=== PATIENT | male | born 1975 | race Caucasian/White ===

== ENCOUNTER 2019-09-14 23:52 | Emergency (ER) | payer SELFPAY ==
[2019-09-14 23:53] VITALS: BP 168/127; PULSE 93; RESP 18; TEMP 36.5; O2SAT 98; BMI 50.1
[2019-09-15 00:02] VITALS: BP 112/72; PULSE 87; RESP 18; O2SAT 100
--- NOTE | 2019-09-15 00:03 | EKG12_ITS ---
Test Reason : SOB Blood Pressure : / mmHG Vent. Rate : 087 BPM Atrial Rate : 087 BPM P-R Int : 142 ms QRS Dur : 076 ms QT Int : 354 ms P-R-T Axes : 025 028 019 degrees QTc Int : 425 ms Sinus rhythm with occasional Premature ventricular complexes Low voltage QRS Borderline ECG Confirmed by ORLANDO WEATHERS, CHRISTIN ([id number]), managing editor XIMENA MOTT ([id number]) on 09/17/2019 1:38:01 PM Referred By: TRINITY Confirmed By:CHRISTIN PERRY MD
[2019-09-15 00:04] VITALS: O2SAT 98
--- NOTE | 2019-09-15 00:04 | ED.DCSUM_ITS ---
History of Present Illness Chief Complaint: Shortness of Breath Informant: Patient Onset: Days Context: Gradual Onset Timing: Continuous Current Severity: Moderate Maximum Severity: Moderate Narrative: The patient is a 44-year-old male with history of prior smoking, obesity, and hypertension that presents to the emergency department cough and shortness of breath. Patient states his symptoms began about 3 days ago. He states he has had chills and myalgias. He had outpatient testing done for COVID-19 yesterday through the [facility] system. This was actually negative. He states tonight, he felt like his dyspnea was worsening. Has been using his 's nebulizer with some improvement. He denies chest pain. He denies orthopnea. He has no history of immunosuppression. He is otherwise been in his normal state of health. Prior similar symptoms: No Recent Illness/Hospitalization: No Past Medical History - Allergies and Home Meds Allergies/Adverse Reactions: Allergies codeine Adverse Reaction (Verified 08/10/16 18:31) Rash Penicillins Adverse Reaction (Verified 08/10/16 18:31) Other Primary Care Physician: Richard Clements MD [Primary Care Provider] - Prior records reviewed: Yes Past Medical History: - - Hypertension, sleep apnea Surgical History: appendectomy, cholecystectomy, - - hernia Smoking Status: Current every day smoker - Family History Maternal Family History: Reports: Heart Disease Sibling Family History: Reports: Diabetes Review of Systems General: Denies: Chills, Fever, Sweats Eyes: Denies: Visual changes - bilaterally, Diplopia ENT: Denies: Rhinorrhea, Sore throat Cardiovascular: Denies: Chest pain, Palpitations Respiratory: Reports: Dyspnea, Cough. Denies: Dyspnea on exertion Gastrointestinal: Reports: Nausea, Diarrhea. Denies: Abdominal pain, Vomiting, Melena, Hematochezia Genitourinary: Denies: Dysuria, Hematuria, Frequency Musculoskeletal: Denies: Back pain, Extremity Pain Skin: Denies: Rash, Wounds Neurological: Denies: Headache, Weakness, Numbness Physical Exam Vital Signs/Narrative: Vital Signs Temp Pulse Resp BP Pulse Ox 09/15/19 00:02 87 18 112/72 100 09/14/19 23:53 97.7 F L 93 18 168/127 H 98 Inital Vital Signs reviewed: Yes General: Well nourished, Well developed, No Acute Distress Head: Normocephalic, Atraumatic Eyes: Perrl, EOMI ENT: Moist mucous membranes, No rhinorrhea Neck: Supple, Nontender Cardiovascular: Regular rate, Regular rhythm, No murmurs Respiratory: No distress, Chest nontender, Decreased Air Movement Abdomen: Soft, Nontender, Nondistended, Normal bowel sounds Back: Nontender, Normal Inspection Extremities: Nontender, No edema Skin: Normal color, No rash Neurological: Alert, Oriented x3, Cranial nerves II-XII grossly intact, Normal Strength, Normal Sensation Psychological: Normal affect, Normal Mood Diagnostic/Tx/Re-eval Chest X-Ray - ED: 1 View, Normal, Heart, Lungs, Mediastinum Clinical Impression(s) from Imaging Studies Chest X-Ray 09/15/19 00:30 IMPRESSION: No acute cardiopulmonary disease identified. Electronically Signed: Louis Miranda, at 1:04 EDT Tel , Service support , Abnormal Lab Results 09/15/19 09/15/19 00:10 00:10 WBC 14.1 H RBC 5.18 Hgb 15.7 Hct 46.8 MCV 90.3 MCH 30.3 MCHC 33.5 RDW Std Deviation 42.5 RDW Coeff of Nancy 12.9 Plt Count 238 MPV 11.0 Immature Gran % (Auto) 0.400 Neut % (Auto) 53.6 Lymph % (Auto) 32.3 [place] % (Auto) 9.8 Eos % (Auto) 3.3 Baso % (Auto) 0.6 Absolute Neuts (auto) 7.6 Absolute Lymphs (auto) 4.56 H Nucleated RBC % 0 Sodium 140 Potassium 4.2 Chloride 112 H Carbon Dioxide 23.0 Anion Gap 5 BUN 11 Creatinine 0.92 Estim Creat Clear Calc 100.33 Est GFR (MDRD) Af Amer 114 Est GFR (MDRD) Non-Af 94 BUN/Creatinine Ratio 11.9 Glucose 119 H Calcium 9.0 Total Bilirubin 0.30 AST 18 ALT 61 Alkaline Phosphatase 73 Troponin I < 0.015 Total Protein 7.0 Albumin 3.5 Globulin 3.5 Albumin/Globulin Ratio 1.0 - Rhythm Strip Rhythm Strip: Sinus Rhythm Rate: 80 Ectopy: PVC(s) - EKG Initial EKG Interpretation: Sinus Rhythm, No Acute Injury Pattern Prior: Unchanged - Medical Decision Making Patient presents with cough, dyspnea, and generalized malaise. He does have a history of smoking and sleep apnea. I did confirm his negative COVID-19 test. Screening labs were obtained these are relatively unremarkable. He does have a mild leukocytosis. Chest x-ray does not show focal infiltrative process, pneumothorax, or volume overload. EKG was sinus rhythm without acute ischemia. There was a few PVCs. Screening labs including cardiac enzymes are also unremarkable. The patient has remained 100% on room air. He has no hypoxia or tachypnea. I do feel this is more bronchitis type illness especially given his otherwise unremarkable work-up and negative cover test. I do feel that he is safe for outpatient therapy. He will be treated with prednisone and d oxycycline. Impression 1. Acute bronchitis ED Disposition - Plan for ED Patient: Instructions: ED Upper Resp Infec Abx Tx Prescriptions: Prednisone [Deltasone] 40 mg PO DAILY #10 tab Prescription Printed Doxycycline 100 mg PO BID #20 cap Prescription Printed Referrals: Richard Clements MD [Primary Care Provider] -
[2019-09-15 00:30] LABS: Absolute Lymphocyte Count 4.56 X10^3/uL (0.83-4.51); Absolute Neutrophil Count 7.6 X10^3/uL (2.0-7.7); Basophil# 0.08 X10^3/uL; Basophil% 0.6 % (0-1); Eosinophil# 0.47 X10^3/uL; Eosinophils% 3.3 % (0-5); Hematocrit 46.8 % (40-54); Hemoglobin 15.7 g/dL (13.0-16.5); Lymphocyte # 4.56 X10^3/ul (4.0); Lymphocyte % 32.3 % (19-41); Mean Corp Hgb Conc 33.5 g/dL (32-36); Mean Corpuscular Hgb 30.3 pg (27.0-32.0); Mean Corpuscular Volume 90.3 fL (80-94); Monocyte# 1.39 X10^3/uL; Monocyte% 9.8 % (0-10); NRBC Flagged by Analyzer 0 % (0-5); Neutrophil # 7.57 X10^3/uL (2.7-7.7); Neutrophil % 53.6 % (47-70); Platelet Count 238 K/mm3 (150-450); RBC Distribution Width CV 12.9 % (11.6-14.6); RBC Distribution Width SD 42.5 fl (35.1-43.9); Red Blood Count 5.18 M/mm3 (4.6-6.2); White Blood Count 14.1 K/mm3 (4.4-11.0)
--- NOTE | 2019-09-15 00:30 | RAD_ITS ---
STUDY: X-RAY CHEST REASON FOR EXAM: Male, 44 years old. COUGH, SOB, MARADIAGA, BODY ACHES TECHNIQUE: Single frontal view of the chest. COMPARISON: None. FINDINGS: The lungs are clear and expanded. There is no demonstrated pleural abnormality. Normal size heart. Aortic calcifications. Normal visualized thoracic spine. Normal visualized ribs, clavicles, and shoulders. There is no demonstrated abnormality of the visualized soft tissue structures of the upper abdomen. RAD/Chest 1 View (Portable) IMPRESSION: No acute cardiopulmonary disease identified. Electronically Signed: Louis Miranda, at 1:04 EDT Tel , Service support ,
[2019-09-15 00:48] LABS: AST(SGOT) 18 U/L (15-37); Alanine Aminotransfer ALT/SGPT 61 U/L (16-61); Albumin, Serum 3.5 g/dL (3.2-5.0); Alkaline Phosphatase 73 U/L (45-117); Anion Gap 5 (5-15); BUN 11 mg/dL (7-18); BUN/Creat Ratio 11.9 RATIO (10-20); Chloride 112 mmol/L (98-107); Creatinine, Serum 0.92 mg/dL (0.70-1.30); EST Glomerular Filtration Rate 94 mL/min (>60); Est Glom Filt Rate - Afr Amer 114 mL/min (>60); Estimated Creatinine Clearance 100.33 ml/min; Globulin 3.5 g/dL (2.2-4.2); Glucose 119 mg/dL (74-106); Potassium 4.2 mmol/L (3.5-5.1); Sodium Level 140 mmol/L (136-145)
[2019-09-15 01:19] VITALS: BP 126/75; PULSE 80; RESP 14; O2SAT 99
[2019-09-15] MEDS: predniSONE 20 MG Tablet 60 MG PO (01:29)
[2019-09-15] MEDS: Doxycycline 100 MG CAPSULE PO (01:29)
[2019-09-15 03:21] LABS: BNP,B-Type NATRIURETIC PEPTIDE 7.3 pg/mL (0-100)
== END 2019-09-15 01:15 | disposition home or self-care (01) ==
LOC: ED 09-15 01:55
PROVIDERS: Emergency Provider Emergency Medicine; PCP Family Medicine
DX: J20.9 Acute bronchitis, unspecified (principal); E66.9 Obesity, unspecified; I10 Essential (primary) hypertension; Z87.891 Personal history of nicotine dependence
CPT/HCPCS: 71045; 80053; 83880; 84484; 85025; 93005; 99285; A4216

== ENCOUNTER 2020-04-20 04:41 | Emergency (ER) | payer BC, SELFPAY ==
[2020-04-20 04:42] VITALS: BP 145/97; PULSE 108; RESP 17; TEMP 36.6; O2SAT 97; BMI 50.9
[2020-04-20 04:56] LABS: Bedside Glucose 460 mg/dL (70-110)
--- NOTE | 2020-04-20 05:04 | RAD_ITS ---
STUDY: X-RAY CHEST REASON FOR EXAM: Male, 44 years old. Drainage of breath, loss of taste and smell. TECHNIQUE: AP portable chest. COMPARISON: September 15, 2019. FINDINGS: The lungs are clear and expanded. There is no demonstrated pleural abnormality. Normal size heart. Normal mediastinum and edin. Normal visualized pulmonary arteries. Normal visualized aortic arch and descending thoracic aorta. Normal visualized thoracic spine. Normal visualized ribs, clavicles, and shoulders. There is no demonstrated abnormality of the visualized soft tissue structures of the upper abdomen. RAD/Chest 1 View (Portable) IMPRESSION: Normal x-ray examination of the chest. Electronically Signed: Davi Norman MD at 5:42 EST , Service support ,
--- NOTE | 2020-04-20 05:04 | EKG12_ITS ---
Test Reason : SOB Blood Pressure : / mmHG Vent. Rate : 107 BPM Atrial Rate : 107 BPM P-R Int : 150 ms QRS Dur : 074 ms QT Int : 324 ms P-R-T Axes : 050 028 031 degrees QTc Int : 432 ms Sinus tachycardia Nonspecific T wave abnormality Confirmed by DOYLE WEATHERS, LUCÍA ([id number]), order editor JOSEF SPARKS ([id number]) on 04/22/2020 9:38:00 AM Referred By: BB Confirmed By:LUCÍA KWON MD
--- NOTE | 2020-04-20 05:05 | ED.DCSUM_ITS ---
History of Present Illness Chief Complaint: Shortness of Breath Detail of Chief Complaint: weakness/malaise Informant: Patient Onset: Days - 1 Context: Gradual Onset Timing: Continuous Quality: malaise Location: all over Current Severity: Moderate Maximum Severity: Moderate Worsened by: nothing Relieved by: nothing Associated Symptoms: loss of smell and taste. diarrhea w/o blood. [employer] cough. no cp or SOB. Narrative: Patient states 3-4 weeks ago, his mom of COVID-19. He denies any other known contacts with it that he has been around, has been trying to be careful in keeping his mask on, not going out much, etc. In the past day he has not been feeling well developed the above symptoms. At work tonight he vomited and felt worse so he presents for evaluation. He denies dyspnea or chest discomfort. - Past Medical History (1) Type 2 diabetes mellitus Status: Chronic (2) Gout Status: Chronic (3) HTN (hypertension) Status: Chronic (4) HAROON (obstructive sleep apnea) Status: Chronic Past Medical History - Allergies and Home Meds Allergies/Adverse Reactions: Allergies codeine Adverse Reaction (Verified 04/20/20 04:45) Rash Penicillins Adverse Reaction (Verified 04/20/20 04:45) Other Primary Care Physician: Richard Clements MD [Primary Care Provider] - Surgical History: appendectomy, cholecystectomy, - - hernia Smoking Status: Never smoker - Family History Maternal Family History: Reports: Heart Disease Sibling Family History: Reports: Diabetes Review of Systems General: Reports: Fever, Malaise, Subjective. Denies: Chills Eyes: Denies: Visual changes - bilaterally, Diplopia ENT: Denies: Bilateral ear pain, Rhinorrhea, Sore throat Cardiovascular: Denies: Chest pain, Palpitations Respiratory: Reports: Cough. Denies: Dyspnea, Dyspnea on exertion Gastrointestinal: Reports: Nausea, Vomiting, Diarrhea. Denies: Abdominal pain, Melena, Hematochezia Genitourinary: Denies: Dysuria, Hematuria, Frequency Musculoskeletal: Reports: Myalgias. Denies: Back pain, Swelling, Extremity Pain Skin: Denies: Rash, Wounds Neurological: Denies: Headache, Weakness, Numbness Physical Exam Vital Signs/Narrative: Vital Signs Temp Pulse Resp BP Pulse Ox 04/20/20 04:42 98 F 108 H 17 145/97 H 97 Inital Vital Signs reviewed: Yes General: Well nourished, Well developed, Obese, No Acute Distress Head: Normocephalic, Atraumatic Eyes: Perrl, EOMI ENT: Moist mucous membranes, No rhinorrhea Neck: Supple, Nontender, No lymphadenopathy, No JVD Cardiovascular: Regular rate, Regular rhythm, No murmurs, Tachycardia - mild Respiratory: No distress, CTA bilaterally, Chest nontender Abdomen: Soft, Nontender, Nondistended, Normal bowel sounds Back: Nontender, Normal Inspection. Negative for: CVA tenderness Extremities: Nontender, No edema. Negative for: Calf Tenderness Skin: Normal color, No rash, No Trauma Neurological: Alert, Oriented x3, Cranial nerves II-XII grossly intact, Normal Strength, Normal Sensation, Normal Gait Psychological: Normal affect, Normal Mood Diagnostic/Tx/Re-eval Impressions Chest X-Ray 04/20/20 05:04 IMPRESSION: Normal x-ray examination of the chest. Electronically Signed: Davi Norman MD at 5:42 EST , Service support , 04/20/20 05:04 Chest 1 View (Portable) [RAD] Stat 04/20/20 04:45 Mucosa - Nose SARS-CoV-2 Antigen (Rapid) - Final Laboratory Results 04/20/20 04/20/20 04/20/20 04:45 04:45 04:47 WBC 12.3 H RBC 5.03 Hgb 14.8 Hct 44.1 MCV 87.7 MCH 29.4 MCHC 33.6 RDW Std Deviation 39.7 RDW Coeff of Nancy 12.3 Plt Count 151 MPV 11.6 Immature Gran % (Auto) 0.300 Neut % (Auto) 54.7 Lymph % (Auto) 32.2 [place] % (Auto) 8.2 Eos % (Auto) 4.1 Baso % (Auto) 0.5 Absolute Neuts (auto) 6.7 Absolute Lymphs (auto) 3.97 Nucleated RBC % 0 Sodium 132 L Potassium 4.7 Chloride 98 Carbon Dioxide 21.0 Anion Gap 13 BUN 17 Creatinine 1.33 H Estim Creat Clear Calc 69.40 Est GFR (MDRD) Af Amer 74 Est GFR (MDRD) Non-Af 61 BUN/Creatinine Ratio 12.8 Glucose 443 H Calcium 9.9 Troponin I < 0.015 POC Glucose 460 H* - Rhythm Strip Rhythm Strip: Sinus Tach Rate: 107 Ectopy: None - EKG Initial EKG Interpretation: Sinus Rhythm, No Acute Injury Pattern Prior: Unchanged - Medical Decision Making Given his BGT of 460, patient was given half liter IV saline in addition to 16 units of subcutaneous lispro. Labs show nonspecific mild leukocytosis, but other than hyperglycemia the rest of his work-up is negative including his Covid rapid antigen test. His symptoms are very concerning for Covid. We have been seeing false positive and false negative rapid antigen test. He is feeling better even though an hour after receiving the insulin, his sugar is still adelfo und 400, and he feels better enough to go home. I think performing an outpatient PCR Covid test would be most appropriate, since his symptoms give a pretest probability that is relatively high. Patient understands and is comfortable with that plan. ED Disposition - Plan for ED Patient: Disposition: Home or Assisted Living Diagnosis: Hyperglycemia due to type 2 diabetes mellitus, Viral URI Instructions: ED URI, Viral, No Abx (Adult), ED Diabetic Hyperglycemia Referrals: Richard Clements MD [Primary Care Provider] - 3-5 Days if not improving
[2020-04-20 05:13] LABS: Absolute Lymphocyte Count 3.97 X10^3/uL (0.83-4.51); Absolute Neutrophil Count 6.7 X10^3/uL (2.0-7.7); Basophil# 0.06 X10^3/uL; Basophil% 0.5 % (0-1); Eosinophil# 0.51 X10^3/uL; Eosinophils% 4.1 % (0-5); Hematocrit 44.1 % (40-54); Hemoglobin 14.8 g/dL (13.0-16.5); Lymphocyte # 3.97 X10^3/ul (4.0); Lymphocyte % 32.2 % (19-41); Mean Corp Hgb Conc 33.6 g/dL (32-36); Mean Corpuscular Hgb 29.4 pg (27.0-32.0); Mean Corpuscular Volume 87.7 fL (80-94); Mean Platelet Vol. 11.6 fl (6.2-12.0); Monocyte# 1.01 X10^3/uL; Monocyte% 8.2 % (0-10); NRBC Flagged by Analyzer 0 % (0-5); Neutrophil # 6.73 X10^3/uL (2.7-7.7); Neutrophil % 54.7 % (47-70); POSITIVE COUNT YES; Platelet Count 151 K/mm3 (150-450); RBC Distribution Width CV 12.3 % (11.6-14.6); RBC Distribution Width SD 39.7 fl (35.1-43.9); Red Blood Count 5.03 M/mm3 (4.6-6.2); White Blood Count 12.3 K/mm3 (4.4-11.0)
[2020-04-20 05:14] LABS: Differential Indicated SCAN CRITERIA MET
[2020-04-20] MEDS: Insulin Lispro 100 UNIT/ML INSULN.PEN 16 UNIT SC (05:18)
[2020-04-20] MEDS: Ondansetron 4 MG/2 ML Vial IV (05:25)
[2020-04-20 05:26] LABS: Anion Gap 13 (5-15); BUN 17 mg/dL (7-18); BUN/Creat Ratio 12.8 RATIO (10-20); Calcium,Total 9.9 mg/dL (8.5-10.1); Chloride 98 mmol/L (98-107); Creatinine, Serum 1.33 mg/dL (0.70-1.30); EST Glomerular Filtration Rate 61 mL/min (>60); Est Glom Filt Rate - Afr Amer 74 mL/min (>60); Glucose 443 mg/dL (74-106); Potassium 4.7 mmol/L (3.5-5.1); Sodium Level 132 mmol/L (136-145)
[2020-04-20 05:45] VITALS: BP 158/69; PULSE 98; RESP 18; O2SAT 99
[2020-04-20 06:00] VITALS: BP 130/87; PULSE 105; RESP 17; O2SAT 98
[2020-04-20 06:40] LABS: Bedside Glucose 406 mg/dL (70-110)
[2020-04-20 07:02] VITALS: BP 136/72; PULSE 64; RESP 15; O2SAT 97
== END 2020-04-20 07:02 | disposition home or self-care (01) ==
PROVIDERS: Emergency Provider Emergency Medicine; PCP Family Medicine
DX: E11.65 Type 2 diabetes mellitus with hyperglycemia (principal); J06.9 Acute upper respiratory infection, unspecified; E66.9 Obesity, unspecified; I10 Essential (primary) hypertension; Z79.84 Long term (current) use of oral hypoglycemic drugs
CPT/HCPCS: 71045; 80048; 82962; 84484; 85025; 87426; 87635; 93005; 96374; 99284; J7040; U0005; A4216; J2405; U0003